=== PATIENT | male | born 1990 ===

== ENCOUNTER 2017-07-03 17:16 | Emergency (ER) | payer SELFPAY ==
[2017-07-03 18:39] LABS: Bilirubin Negative (Negative); Blood, Urine Negative (Negative); Glucose, Urine (Dipstick) Negative (Negative); Ketone, Urine Negative (Negative); Nitrite Negative (Negative); Protein, Urine (Dipstick) Negative (Neg-Trace); Urobilinogen 0.2 mg/dL (0.2-1.0)
--- NOTE | 2017-07-03 19:26 | ULT ---
TESTICULAR ULTRASOUND 07/03/17 HISTORY: Left sided lower abdominal pain and left testicular pain for one week. FINDINGS: Testicles demonstrate a normal appearance bilaterally with symmetric echotexture. No testicular mass is seen. The right testicle measures 5.4 cm x 2.7 cm x 2.9 cm with left testicle measuring 5.1 cm x 3.1 cm x 2.6 cm. The epididymides demonstrate a normal sonographic appearance bilaterally. Doppler evaluation of each ovary with spectral analysis and color flow evaluation demonstrates arter ial and venous flow in each testicle. There is no evidence of a hydrocele. IMPRESSION: Normal appearing bilateral testicles with arterial flow documented in each testicle. POS: [facility]
[2017-07-03] MEDS ORDERED: cefTRIAXone\\ROCEPHIN 250 MG VIAL ONE (19:38)
[2017-07-03] MEDS ORDERED: Lidocaine 1% PF 5 ML VIAL ONE (19:38)
== END 2017-07-03 19:52 | disposition home or self-care (01) ==
LOC: ERS 17:16
DX: N50.812 Left testicular pain (principal); R30.0 Dysuria
CPT/HCPCS: 76870; 81003; 87491; 87591; 93976; 96372; J0696; J2001